=== PATIENT | female | born 1975 | race Caucasian/White ===

== ENCOUNTER → 2016-12-06 | Outpatient (CLI) | payer OTHER ==
[~2016-12-06] MED LIST: DIPH50IN2 IM; FLUC150T PO; IPRA0.02 INH; IPRA18I INH; LIDO5DIS35 TD; LOESTAB PO; PERM5CRE TOP; PROC2.5C RECTAL; SOLU40IN IM; SYNT75TA PO; TUSSSUS2 PO; XOPE1.252 IN; XOPEAER4 INH
[2016-12-06 09:22] LABS: AUTOMATED NEUTROPHIL # 2.4 TH/MM3 (1.8-7.7); BASOPHIL % 0.9 % (0.0-2.0); EOSINOPHIL # 0.2 TH/MM3 (0-0.4); EOSINOPHIL % 4.4 % (0.0-4.0); HEMATOCRIT 39.4 % (35.0-46.0); HEMO FLAGS DIFF FINAL; LYMPH % 38.4 % (9.0-44.0); LYMPHOCYTE # 1.9 TH/MM3 (1.0-4.8); MEAN CELL VOLUME 90.7 FL (80.0-100.0); MEAN CORPUSCULAR HEMOGLOBIN 30.5 PG (27.0-34.0); MEAN CORPUSCULAR HGB CONC 33.6 % (32.0-36.0); NEUT % 47.3 % (16.0-70.0); PLATELET COUNT 278 TH/MM3 (150-450); RED BLOOD COUNT 4.35 MIL/MM3 (4.00-5.30); RED CELL DISTRIBUTION WIDTH 13.8 % (11.6-17.2); WHITE BLOOD COUNT 5.1 TH/MM3 (4.0-11.0)
[2016-12-06 09:45] LABS: ALKALINE PHOSPHATASE 74 U/L (45-117); ALT (GPT) 17 U/L (10-53); ANION GAP 8 MEQ/L (5-15); AST (GOT) 9 U/L (15-37); BICARBONATE 25.9 MEQ/L (21.0-32.0); BLOOD UREA NITROGEN 8 MG/DL (7-18); CHLORIDE 105 MEQ/L (98-107); GLOMERULAR FILTRATION RATE 78 ML/MIN (>89); GLUCOSE,FASTING 92 MG/DL (74-99); POTASSIUM 3.7 MEQ/L (3.5-5.1); SODIUM (NA) 139 MEQ/L (136-145); TOTAL BILIRUBIN ADULT 0.4 MG/DL (0.2-1.0)
[2016-12-06 09:53] LABS: CREATINE KINASE 40 U/L (26-192)
[2016-12-06 10:33] LABS: IMMUNOGLOBULIN A 223 MG/DL (78-430); IMMUNOGLOBULIN G 938 MG/DL (670-1640)
[2016-12-06 10:43] LABS: IMMUNOGLOBULIN M 72 MG/DL (55-338)
== END ==
LOC: HLAB 08:16
PROVIDERS: ATTEND Allergy & Immunology
DX: J45.40 Moderate persistent asthma, uncomplicated (principal)
CPT/HCPCS: 36415; 80053; 82550; 82784; 82785; 85025

== ENCOUNTER → 2017-09-19 | Day surgery (SDC) | payer OTHER ==
--- NOTE | 2017-09-18 18:44 | MH ---
cc: DOMO JAMESON DATE OF ADMISSION: 09/19/2017 ADMITTING DIAGNOSIS: HISTORY OF PRESENT ILLNESS: The patient is a 41 year-old female with persistent right-sided ear fullness and vertigo for right-sided myringotomy and T-tube placement. PAST MEDICAL HISTORY Unremarkable PAST SURGICAL HISTORY Notable for previous nasal surgery x2. REVIEW OF SYSTEMS, FAMILY HISTORY AND SOCIAL HISTORY Unremarkable. PHYSICAL EXAMINATION Well-appearing patient, no distress noted. HEENT: Exam reveals right-sided ear fullness and retraction, nasal cavity edema of the turbinate. Lungs: Clear. Heart: Regular rate and rhythm. Abdomen: Soft and nontender. Extremities: Without cyanosis, clubbing or edema. Neurologically alert, oriented, nonfocal neurologic exam. IMPRESSION The patient with chronic otitis for right-sided myringotomy and tube placement. Instructed as to the method of surgery and possible complication and these include anesthetic complications, cardiac difficulty, pulmonary difficulty, stroke, or even . Surgical complications of bleeding, infection, risk of early or late extrusion of tubes, tympanic membrane perforation, conductive or sensorineural hearing loss. The patient appeared to agree, accept and understand above-mentioned risks and benefits. In addition no guarantees or warranties regarding outcome were given. We will therefore proceed with surgery. Domo Jameson MD [facility]TH[facility] /5:03 PM /5:36 PM
[~2017-09-19] VITALS: Ht 175.3 cm; Wt 63.8 kg
[~2017-09-19] MED LIST changes: +DEXAMETHASONE SOD PHOS 4 MG/ML VIAL IV ONE; -DIPH50IN2 IM; -FLUC150T PO; +INSULIN HUMAN REGULAR 1,000 UNITS/10 ML VIAL SQ PRN; +IPRA0.02 NEB; -IPRA18I INH; +LACTATED RINGER'S 1000 ML IV PRN; +LEVA1.257 NEB; +LEVO.075 PO; +LIDO5%T TOPICAL; +LIDOCAINE HCL 1% PF 5 ML AMPULE OTHER ONE; -LOESTAB PO; +METOPROLOL TARTRATE 25 MG TAB PO PRN; +METR0.7528 VAGINAL; +MORPHINE SULFATE 2 MG/ML INJ IV PUSH PRN; +OCEA0.653 EACH NARE; +OFLOXACIN 0.3% OPTH SOLN 5 ML BTL ONE; +ONDANSETRON HCL 4 MG/2 ML VIAL IV PUSH ONE; +ONDANSETRON HCL 4 MG/2 ML VIAL IV PUSH PRN; -PERM5CRE TOP; +PROPOFOL 200 MG/20 ML AMP IV ONE; +SILV1CRE20 TOPICAL; +SODIUM CHLORID 0.9% 500 ML IV PRN; -TUSSSUS2 PO
[2017-09-19 09:40] VITALS: BP 107/72; PULSE 68; RESP 16; TEMP 98.3; O2SAT 100
--- NOTE | 2017-09-19 11:20 | MP ---
cc: DOMO JAMESON DATE OF SURGERY: 09/19/2017 PREOPERATIVE DIAGNOSIS Chronic otitis media. PROCEDURE Right myringotomy and tube placement. ANESTHESIA General anesthesia. ESTIMATED BLOOD LOSS Minimal. COMPLICATIONS None. OPERATING SURGEON Dr. Jameson. PROCEDURE The patient was prepped and draped in the usual fashion. Under microscopic visualization anterior-inferior radial myringotomy incision was made. Fluid was suctioned from the middle ear cavity under microscopic visualization and tympanostomy T-tube placed in good position along with Oflox ophthalmic. The patient tolerated the procedure well. MD ARANZA Bravo/JONATHAN /10:13 AM /11:10 AM
== END | disposition home or self-care (01) ==
LOC: HSDC 06:03
PROVIDERS: ATTEND Specialist
DX: H66.91 Otitis media, unspecified, right ear (principal)
CPT/HCPCS: 00126; 69436; J1100; J2405; J3010; J7120

== ENCOUNTER → 2018-02-27 | Outpatient (CLI) | payer OTHER ==
[~2018-02-27] MED LIST changes: -DEXAMETHASONE SOD PHOS 4 MG/ML VIAL IV ONE; -INSULIN HUMAN REGULAR 1,000 UNITS/10 ML VIAL SQ PRN; -IPRA0.02 INH; -LACTATED RINGER'S 1000 ML IV PRN; -LIDO5DIS35 TD; -LIDOCAINE HCL 1% PF 5 ML AMPULE OTHER ONE; -METOPROLOL TARTRATE 25 MG TAB PO PRN; -MORPHINE SULFATE 2 MG/ML INJ IV PUSH PRN; -OFLOXACIN 0.3% OPTH SOLN 5 ML BTL ONE; -ONDANSETRON HCL 4 MG/2 ML VIAL IV PUSH ONE; -ONDANSETRON HCL 4 MG/2 ML VIAL IV PUSH PRN; -PROC2.5C RECTAL; -PROPOFOL 200 MG/20 ML AMP IV ONE; -SILV1CRE20 TOPICAL; -SODIUM CHLORID 0.9% 500 ML IV PRN; -SOLU40IN IM; -SYNT75TA PO; -XOPE1.252 IN
[2018-02-27 06:18] LABS: AMORPHOUS SEDIMENT, URINE RARE; BACTERIA, URINE MOD /hpf; BILIRUBIN, URINE NEG (NEG); BLOOD, URINE NEG (NEG); GLUCOSE,URINE NEG (NEG); KETONE, URINE 10 mg/dL (NEG); MUCUS URINE MANY /lpf (OCC); NITRITE,URINE NEG (NEG); SQUAMOUS EPITHELIAL CELL URINE 4 /hpf (0-5); URINE COLOR YELLOW (YELLW/STRAW); URINE LEUKOCYTE ESTERASE TRACE (NEG)
[2018-02-27 06:45] LABS: ALBUMIN 4.3 GM/DL (3.4-5.0); AST (GOT) 29 U/L (15-37); BICARBONATE 25.2 MEQ/L (21.0-32.0); BLOOD UREA NITROGEN 11 MG/DL (7-18); CALCIUM 9.6 MG/DL (8.5-10.1); CHLORIDE 105 MEQ/L (98-107); CREATININE 0.91 MG/DL (0.50-1.00); GLOMERULAR FILTRATION RATE 68 ML/MIN (>89); GLUCOSE,FASTING 94 MG/DL (74-99); SODIUM (NA) 138 MEQ/L (136-145)
[2018-02-27 06:46] LABS: ALT (GPT) 49 U/L (10-53)
[2018-02-27 06:48] LABS: ALKALINE PHOSPHATASE 76 U/L (45-117); TOTAL BILIRUBIN ADULT 0.7 MG/DL (0.2-1.0); TOTAL PROTEIN 8.2 GM/DL (6.4-8.2)
== END ==
LOC: HLAB 05:53
PROVIDERS: ATTEND Allergy & Immunology
DX: R53.1 Weakness (principal); M47.817 Spondylosis without myelopathy or radiculopathy, lumbosacral region; L40.50 Arthropathic psoriasis, unspecified; R82.90 Unspecified abnormal findings in urine; Z79.899 Other long term (current) drug therapy
CPT/HCPCS: 36415; 80053; 81001; 87086

== ENCOUNTER → 2018-03-07 | Outpatient (CLI) | payer OTHER ==
[2018-03-07 07:32] LABS: THYROXINE (T4) 13.2 MCG/DL (4.8-13.9)
[2018-03-07 07:41] LABS: CHOLESTEROL/ HDL RATIO 2.65 RATIO; HDL CHOLESTEROL 64.4 MG/DL (40.0-60.0)
== END ==
LOC: HLAB 06:26
PROVIDERS: ATTEND Family Medicine
DX: R53.83 Other fatigue (principal); Z79.899 Other long term (current) drug therapy
CPT/HCPCS: 36415; 80061; 84436; 84443; 84480

== ENCOUNTER → 2018-03-11 | Outpatient (CLI) | payer OTHER | LOC: HLAB 05:04 | PROVIDERS: ATTEND Family Medicine | DX: N39.0 Urinary tract infection, site not specified (principal); R82.79 Other abnormal findings on microbiological examination of urine | CPT/HCPCS: 87086 ==